=== PATIENT | female | born 1975 | race Hispanic/Latino ===

== ENCOUNTER 2020-12-18 10:38 | Day surgery (SDC) | payer BC ==
[~2020-12-18 10:38] MED LIST: ceFAZolin/Water 2 GM/20 ML 2 GM/20 ML SYRINGE IV NR
[2020-12-18] MEDS ORDERED: LACTATED RINGERS 1,000 ML IV SCH (12:30)
[2020-12-18] MEDS ORDERED: MIDAZOLAM 2 MG/2 ML INJ ONE (12:58)
[2020-12-18] MEDS ORDERED: ONDANSETRON 4 MG/2 ML INJ IV PRN (13:07)
[2020-12-18] MEDS ORDERED: MAGNESIUM OXIDE 400 MG TAB PO ONE (13:07)
[2020-12-18] MEDS ORDERED: ACETAMINOPHEN 500 MG TAB PO ONE (13:07)
--- NOTE | 2020-12-18 13:08 | Anesthesia Day of Surgery ---
Anesthesia Day of Surgery - Day of Surgery Patient Examined: Yes Patient H&P Reviewed: Yes Patient is NPO: Yes
--- NOTE | 2020-12-18 13:10 | Anesthesia Consultation ---
Anesthesia Consult and Med Hx Date of service: 12/18/20 - Airway Anesthetic Teeth Evaluation: Crowns ROM Head & Neck: Adequate Mental/Hyoid Distance: Adequate Mallampati Class: Class III Intubation Access Assessment: Probably Good - Pre-Operative Health Status ASA Pre-Surgery Classification: ASA2 Proposed Anesthetic Plan: General - Pre-Anesthesia Comment Pre-Anesthesia Comments: PONV - Cardiovascular System Hx Cardia Arrhythmia: Yes (Tachy) - Central Nervous System Hx Psychiatric Problems: Yes (ADD/Anxiety/Depression) - Gastrointestinal Hx Gastroesophageal Reflux Disease: Yes - Other Systems Hx Cancer: No
[2020-12-18] MEDS: MIDAZOLAM 2 MG/2 ML INJ IV NR ×2 (13:37→13:45)
[2020-12-18] MEDS: HYDROmorphone 1 MG/1 ML INJ IV PRN ×6 (13:40→19:00)
[2020-12-18] MEDS ORDERED: SCOPOLAMINE TRANSDERMAL PATCH 72 HR TD NR (14:00)
[2020-12-18] MEDS ORDERED: CELECOXIB 200 MG CAP PO NR (14:00)
[2020-12-18] MEDS ORDERED: BUPIVACAINE/PF (0.5%) 5 MG/1 ML 30 ML VIAL INFILTRATI ONE (14:45)
[2020-12-18] MEDS ORDERED: HYDROmorphone 1 MG/1 ML INJ ONE (16:28)
[2020-12-18] MEDS ORDERED: ONDANSETRON 4 MG/2 ML INJ ONE (16:28)
[2020-12-18] MEDS ORDERED: propofoL 200 MG/20 ML VIAL IV ONE (16:29)
[2020-12-18] MEDS ORDERED: dexAMETHasone 20 MG/5 ML VIAL ONE (16:29)
[2020-12-18] MEDS ORDERED: LIDOCAINE MPF (2%) 20 MG/1 ML VIAL 5 ML ONE (16:29)
[2020-12-18] MEDS ORDERED: LIDOCAINE 2%/EPINEPHRINE 1:200,000 VIAL (20 ML) INFILTRATI ONE (17:04)
[2020-12-18] MEDS ORDERED: SODIUM CHLORIDE 0.9% IRR 1,500 ML BOTTLE IR ONE (18:00)
[2020-12-18] MEDS ORDERED: LIDOCAINE 2%/EPINEPHRINE 1:100,000 VIAL (20 ML) INFILTRATI ONE (18:00)
[2020-12-18] MEDS ORDERED: SODIUM CHLORIDE 0.9% IRRIG SOLN 2000 ML IR ONE (18:00)
[2020-12-18] MEDS ORDERED: NEOMY 3.5 MG/BACIT 400 UNITS/POLY B 5000 UNITS OINT 15 GM TP ONE (18:11)
[2020-12-18] MEDS ORDERED: LACTATED RINGERS 1,000 ML ONE (18:14)
--- NOTE | 2020-12-18 18:30 | Short Stay Summary ---
Short Stay Documentation Date of service: 12/18/20 - Allergies and Medications Current Medications: Allergies erythromycin base Allergy (Verified 12/14/20 18:01) N&V latex Allergy (Verified 12/14/20 18:01) Itching metronidazole [From Flagyl] Allergy (Verified 12/14/20 18:01) N&V tramadol Allergy (Verified 12/18/20 13:54) Itching Home Medications Medication Instructions Recorded Confirmed Last Taken Type ALPRAZolam [Xanax TAB] 0.5 mg PO BID PRN 12/14/20 12/14/20 12/17/20 History Colchicine [Colcrys] 0.6 mg PO DAILY 12/14/20 12/14/20 12/17/20 History Dextroamphetamine/Amphetamine 20 mg PO BID 12/14/20 12/14/20 12/17/20 History [Adderall] Loratadine [Allergy Relief] 10 mg PO DAILY 12/14/20 12/14/20 12/17/20 History Nabumetone [Relafen] 500 mg PO BID 12/14/20 12/14/20 12/17/20 History OXYCODONE hcl [Oxycodone] 15 mg PO QID 12/14/20 12/14/20 12/17/20 History Omeprazole 40 mg PO DAILY 12/14/20 12/14/20 12/17/20 History Topiramate [Topamax] 100 mg PO BID 12/14/20 12/18/20 12/18/20 08:00 History Triazolam [Halcion] 0.25 mg PO HS 12/14/20 12/14/20 12/17/20 History Venlafaxine HCl [Effexor Xr] 150 mg PO DAILY 12/14/20 12/14/20 12/17/20 History buPROPion SR [Wellbutrin Sr] 150 mg PO QAM 12/14/20 12/14/20 12/17/20 History Active Medications Celecoxib (Celecoxib 200 Mg Cap) 400 mg PO PREOP NR Stop: 12/21/20 23:59 Last Admin: 12/18/20 13:25 Dose: 400 mg Documented by: Hydromorphone HCl (Hydromorphone 1 Mg/1 Ml Inj) 0.5 mg IV Q10MIN PRN PRN Reason: Pain , Severe (7-10) Cefazolin Sodium (Ancef/Sterile Water 2 Gm/20 Ml) 2 gm in 20 mls @ 80 mls/hr IV PREOP NR; Protocol Stop: 12/18/20 23:00 Lactated Ringer's (Lactated Ringers) 1,000 mls @ 100 mls/hr IV DIRECT DEYSI Last Admin: 12/18/20 13:35 Dose: 100 mls/hr Documented by: Midazolam HCl (Midazolam 2 Mg/2 Ml Inj) 2 mg IV PREOP NR Stop: 12/18/20 23:59 Last Admin: 12/18/20 13:45 Dose: 2 mg Documented by: Ondansetron HCl (Ondansetron 4 Mg/2 Ml Inj) 4 mg IV ONCE PRN PRN Reason: Nausea And Vomiting Scopolamine (Scopolamine Transdermal Patch 72 Hr) 1 each TD PREOP NR Stop: 12/21/20 23:59 Last Admin: 12/18/20 13:25 Dose: 1 each Documented by: - Brief post op/procedure progress note Date of procedure: 12/18/20 Pre-op diagnosis: Complicated open wound of the left breast Post-op diagnosis: same Procedure: Debridement of complicated open wound of the left breast and complex closure 29 cm Anesthesia: GETA Findings: see operative report Surgeon: JEANNE HOPE Estimated blood loss: other (25 ml) Pathology: none Condition: stable - Hospital course Hospital course: Outpatient surgery under general anesthesia - Disposition Condition at discharge: Good Disposition: 01 HOME / SELF CARE / HOMELESS Short Stay Discharge Plan Activity: other (No strenous activity) Weight Bearing Status: Full Weight Bearing Diet: regular Wound: keep clean and dry Follow up with: MANUEL VERAS MD [Primary Care Provider] - 7 Days JEANNE HOPE MD [Staff Physician] - 7 Days
--- NOTE | 2020-12-18 18:36 | Operative Report ---
Operative Report Operative Report: Date of procedure: December 18, 2020 Pre-operative diagnosis: Complicated open wound of the left breast mound status post bilateral secondary reduction mammoplasty Post-operative diagnosis: Same Procedure name(s): Debridement and complex closure of breast wound 29 cm Surgeon: Lucius Oliveros M.D. Electrical Solderer: None Anesthesia: General anesthesia EBL: 25 mL Specimen: None Findings: See operative report Procedure: Patient was taken to the operating room placed in the supine position. She underwent smooth induction of general anesthesia. Her arms were abducted and placed on boards. Sequential compression devices and bear hugger warming device were placed on the lower body. She was prepped and draped in usual sterile fashion. The edges of the complicated open wound was marked. The edges were injected with 1% lidocaine with 1 200,000 epinephrine. The granulation tissue was scraped with a #15 blade. The complicated open wound was copiously irrigated with numeral 6 L pulse lavage. The skin edges were freshened by excising the edges of the wound. The granulation tissue superficial layer was removed. The medial lateral and superior skin flaps were undermined elevated and advanced towards the meridian. The skin was closed with 3-0 nylon simple interrupted sutures taking small bites and working my way from the edges to the junction of the T. Triple antibiotic ointment was applied. Xeroform strips were applied fluffy dressing was applied along with an ABD dressing. Breast binder was applied. Patient tolerated procedure well. She was awakened and taken to recover in satisfactory condition.
--- NOTE | 2020-12-18 18:52 | Post Anesthesia Evaluation ---
- Post Anesthesia Evaluation Patient Participated: Yes Airway Patent: Yes Stable Respiratory Function: Yes Nausea/Vomiting: No Temp > 96.8F: Yes Pain Manageable: Yes Adequeate Hydration: Yes Anesthesia Complications: No Block Receding Appropriately: Not Applicable Patient on Ventilator: No
[2020-12-18 20:05] VITALS: BP 110/74
== END 2020-12-18 20:25 | disposition home or self-care (01) ==
LOC: OR 10:38
PROVIDERS: ATTEND Plastic Surgery
DX: S21.002A Unspecified open wound of left breast, initial encounter (principal); N64.4 Mastodynia; N62 Hypertrophy of breast; K21.9 Gastro-esophageal reflux disease without esophagitis; F41.9 Anxiety disorder, unspecified; F32.9 Major depressive disorder, single episode, unspecified; M19.90 Unspecified osteoarthritis, unspecified site; Z79.899 Other long term (current) drug therapy; Z90.49 Acquired absence of other specified parts of digestive tract; Z98.890 Other specified postprocedural states; Z88.1 Allergy status to other antibiotic agents; Z91.040 Latex allergy status; Z88.8 Allergy status to other drugs, medicaments and biological substances; X58.XXXA Exposure to other specified factors, initial encounter; Y93.89 Activity, other specified; Y92.89 Other specified places as the place of occurrence of the external cause; Y99.8 Other external cause status
CPT/HCPCS: 13101; 13102; 81025; A4217; A6250; J0690; J1100; J1170; J2250; J2405; J2704; J7120